=== PATIENT | male | born 1970 | race Hispanic/Latino ===

== ENCOUNTER → 2023-02-09 | Day surgery (SDC) | payer BC ==
[~2023-02-09] MED LIST: ASPIRIN81 MG PO; B COMPLEX1 EACH; CRESTOR10 MG PO; HYOSCYAMINE SULFATE 0.5 MG/ML INJ ONE; LACTATED RINGER'S 1,000 ML ONE; LIDOCAINE HCL 2% LOCAL INJ 5 ML SDV VIAL INJ ONE; LISINOPRIL2.5 MG PO; METFORMIN HCL850 MG PO; MIDAZOLAM HCL 2 MG/2 ML VIAL ONE; PIOGLITAZONE HC45 MG PO; PROPOFOL IV EMULSION 10 MG/ML 20 ML VIAL ONE
[2023-02-09 09:38] VITALS: TEMP 97.2
[2023-02-09 10:05] VITALS: BP 120/85; PULSE 79; RESP 15; O2SAT 99
== END | disposition home or self-care (01) ==
LOC: OR 07:28
PROVIDERS: ATTEND Internal Medicine Gastroenterology
DX: Z12.11 Encounter for screening for malignant neoplasm of colon (principal); K62.1 Rectal polyp; K64.8 Other hemorrhoids; Z71.3 Dietary counseling and surveillance; I10 Essential (primary) hypertension; E78.5 Hyperlipidemia, unspecified; J45.909 Unspecified asthma, uncomplicated; E11.9 Type 2 diabetes mellitus without complications; Z01.810 Encounter for preprocedural cardiovascular examination; Z79.82 Long term (current) use of aspirin; Z79.84 Long term (current) use of oral hypoglycemic drugs; Z79.899 Other long term (current) drug therapy; Z68.32 Body mass index [BMI] 32.0-32.9, adult
CPT/HCPCS: 36415; 45385; 82948; 93005; J1980; J2001; J2250; J2704; J7121; 45378; 45380

== ENCOUNTER 2024-02-08 09:36 | Observation (INO) | payer BC ==
[~2024-02-08] VITALS: Ht 165.1 cm; Wt 86.2 kg
[~2024-02-08 09:36] MED LIST changes: -HYOSCYAMINE SULFATE 0.5 MG/ML INJ ONE; -LACTATED RINGER'S 1,000 ML ONE; -LIDOCAINE HCL 2% LOCAL INJ 5 ML SDV VIAL INJ ONE; -MIDAZOLAM HCL 2 MG/2 ML VIAL ONE; -PROPOFOL IV EMULSION 10 MG/ML 20 ML VIAL ONE
[2024-02-08] MEDS ORDERED: METFORMIN HCL1000 MG PO (10:03)
[2024-02-08] MEDS: SODIUM CHLORIDE 0.9% 1000ML 1,000 ML IV STA (10:23)
[2024-02-08 10:24] LABS: BASOPHILS # (AUTO) 0.1 (0.0-0.1); BASOPHILS % 0.7 % (0.0-1.0); EOSINOPHILS # (AUTO) 0.3 (0.0-0.4); HEMATOCRIT 41.8 % (38.2-49.6); LYMPHOCYTES # (AUTO) 1.9 (1.0-3.2); LYMPHOCYTES % 28.8 % (18.0-39.1); MEAN CORPUSCULAR HEMOGLOBIN 33.1 pg (28-32); MEAN CORPUSCULAR HGB CONC 33.5 g/dL (31-35); MEAN CORPUSCULAR VOLUME 98.8 fL (81-99); MONOCYTES # (AUTO) 0.5 (0.2-0.8); MONOCYTES % 6.9 % (4.4-11.3); NEUTROPHILS % 59.2 % (38.7-80.0); PLATELET COUNT 144 x10e3/uL (140-360); RED BLOOD COUNT 4.23 x10e6/uL (4.3-5.7); RED CELL DISTRIBUTION WIDTH 12.9 % (11.7-14.4); WHITE BLOOD COUNT 6.71 x10e3/uL (4.8-10.8)
[2024-02-08 10:51] LABS: PROTHROMBIN TIME 13.9 seconds (11.9-14.5)
[2024-02-08 10:52] LABS: PARTIAL THROMBOPLASTIN TIME 27.1 seconds (23.8-35.5)
[2024-02-08 10:59] LABS: ALANINE AMINOTRANSFERASE 20 IU/L (0-55); ALBUMIN 4.2 g/dL (3.5-5.0); ALBUMIN/GLOBULIN RATIO 1.6 (0.8-2.0); ALKALINE PHOSPHATASE 57 IU/L (40-150); ANION GAP 16.8 mmol/L (8-16); BILIRUBIN,TOTAL 0.5 mg/dL (0.2-1.2); BLOOD UREA NITROGEN 9 mg/dL (7-26); BUN/CREATININE RATIO 11 (6-25); CALCIUM 9.6 mg/dL (8.4-10.2); CARBON DIOXIDE 23 mmol/L (22-29); CHLORIDE 103 mmol/L (98-107); CREATINE KINASE 127 IU/L (30-200); CREATININE, SERUM 0.83 mg/dL (0.72-1.25); EST GLOMERULAR FILTRATION RATE 104 ML/MIN (>=60); GLUCOSE 174 mg/dL (74-118); MAGNESIUM 1.6 MG/DL (1.3-2.1); POTASSIUM 3.8 mmol/L (3.5-5.1); SODIUM 139 mmol/L (136-145); TOTAL PROTEIN 6.9 g/dL (6.5-8.1)
[2024-02-08] MEDS ORDERED: ONDANSETRON HCL INJ 2MG/ML 2ML 2 MG/ML VIAL IV PRN (11:00)
[2024-02-08 11:36] LABS: TROPONIN I < 0.001 ng/mL (0-0.300)
[2024-02-08 12:50] VITALS: PULSE 71; RESP 16; TEMP 97.9
[2024-02-08 13:09] VITALS: BP 130/92; PULSE 70; RESP 16; TEMP 97.9; O2SAT 100
[2024-02-08 13:19] VITALS: BP 139/94; PULSE 78; RESP 16; TEMP 98.6; O2SAT 100
[2024-02-08 16:24] VITALS: BP 142/85; PULSE 71; RESP 18; TEMP 98.5; O2SAT 99
[2024-02-08 16:57] LABS: CREATINE KINASE 101 IU/L (30-200)
[2024-02-08 17:17] LABS: TROPONIN I < 0.001 ng/mL (0-0.300)
[2024-02-08] MEDS ORDERED: DEXTROSE 50% SYRINGE 50 ML IV PRN (20:00)
[2024-02-08 21:00] VITALS: BP 130/88; PULSE 67; RESP 17; TEMP 98.3; O2SAT 98
[2024-02-08] MEDS: INSULIN LISPRO 100 UNIT/1 ML 3ML VIAL SQ SCH (21:53)
[2024-02-09] VITALS: BP 135/75; PULSE 67; RESP 17; TEMP 97.9; O2SAT 98
[2024-02-09 04:00] VITALS: BP 132/87; PULSE 89; RESP 17; TEMP 98.2; O2SAT 100
[2024-02-09 06:30] LABS: BASOPHILS % 0.4 % (0.0-1.0); EOSINOPHILS # (AUTO) 0.3 (0.0-0.4); EOSINOPHILS % 4.6 % (0.0-6.0); HEMATOCRIT 39.7 % (38.2-49.6); HEMOGLOBIN 12.9 g/dL (14.0-18.0); MEAN CORPUSCULAR HEMOGLOBIN 33.1 pg (28-32); MEAN CORPUSCULAR HGB CONC 32.5 g/dL (31-35); MEAN CORPUSCULAR VOLUME 101.8 fL (81-99); MONOCYTES # (AUTO) 0.6 (0.2-0.8); NEUTROPHILS # (AUTO) 3.8 (2.1-6.9); NEUTROPHILS % 55.9 % (38.7-80.0); PLATELET COUNT 135 x10e3/uL (140-360); RED CELL DISTRIBUTION WIDTH 13.2 % (11.7-14.4); WHITE BLOOD COUNT 6.81 x10e3/uL (4.8-10.8)
[2024-02-09 06:47] LABS: ALBUMIN 3.6 g/dL (3.5-5.0); ALBUMIN/GLOBULIN RATIO 1.2 (0.8-2.0); BILIRUBIN,TOTAL 0.7 mg/dL (0.2-1.2); CALCIUM 8.6 mg/dL (8.4-10.2); CHOL/HDL RATIO 1.8 (3.9-4.7); CREATINE KINASE 81 IU/L (30-200); CREATININE, SERUM 0.88 mg/dL (0.72-1.25); TOTAL PROTEIN 6.6 g/dL (6.5-8.1)
[2024-02-09 06:59] LABS: TROPONIN I < 0.001 ng/mL (0-0.300)
[2024-02-09 09:07] VITALS: BP 127/88; PULSE 72; RESP 17; TEMP 98.1; O2SAT 100
[2024-02-09] MEDS: SIMVASTATIN 40 MG TAB PO SCH (09:22)
[2024-02-09] MEDS: PANTOPRAZOLE SODIUM 20 MG TABLET.DR PO SCH (09:22)
[2024-02-09] MEDS: ASPIRIN 81 MG CHEW TAB PO SCH (09:22)
[2024-02-09] MEDS: PIOGLITAZONE HCL 45 MG TAB PO SCH (09:28)
[2024-02-09 13:31] VITALS: BP 117/83; PULSE 80; RESP 17; TEMP 98.6; O2SAT 98
[2024-02-09] MEDS ORDERED: PLAVIX75 MG PO (16:30)
[2024-02-09 17:06] VITALS: BP 142/86; PULSE 63; RESP 18; TEMP 97.7; O2SAT 100
== END 2024-02-09 17:58 | disposition home or self-care (01) ==
LOC: ER 09:47 → ERHOLD 11:07 → MED/SURG2 13:12
PROVIDERS: ADMIT Internal Medicine; ATTEND Internal Medicine
DX: R55 Syncope and collapse (principal); E11.65 Type 2 diabetes mellitus with hyperglycemia; R42 Dizziness and giddiness; I65.23 Occlusion and stenosis of bilateral carotid arteries; E78.5 Hyperlipidemia, unspecified; I10 Essential (primary) hypertension; F10.10 Alcohol abuse, uncomplicated; Z71.41 Alcohol abuse counseling and surveillance of alcoholic; Z11.52 Encounter for screening for COVID-19; Z79.82 Long term (current) use of aspirin; Z79.84 Long term (current) use of oral hypoglycemic drugs; Z79.02 Long term (current) use of antithrombotics/antiplatelets; Z79.899 Other long term (current) drug therapy; Z68.31 Body mass index [BMI] 31.0-31.9, adult; Z82.3 Family history of stroke; Z82.49 Family history of ischemic heart disease and other diseases of the circulatory system
CPT/HCPCS: 36415; 70450; 70544; 70547; 70551; 71045; 80053 ×2; 80061; 82550 ×2; 82607; 82948 ×2; 83036; 83735 ×2; 84484 ×2; 85025 ×2; 85610; 85730; 93005; 96372; 99284; G0378 ×2; J7030; U0002